=== PATIENT | male | born 1965 | race African-American/Black ===

== ENCOUNTER 2018-12-01 18:07 | Inpatient (IN) | payer OTHER ==
[2018-12-01 18:23] VITALS: TEMP 98; BMI 38.7
--- NOTE | 2018-12-01 18:25 | PDOC ---
History of Present Illness - General Chief Complaint: Chest Pain Stated Complaint: PALPITATIONS Time Seen by Provider: 12/01/18 18:16 - History of Present Illness Initial Comments: 12/01/18 18:40 Mr. 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 Patient reports palpitations started around 12 :30 today and he attempted to ignore them however became concerned when the sweating and dizziness started around 1730 today. Patient denies any other complaints at this time and was previously well before this episode. The patient denies chest pain, shortness of breath, and headache. Denies fever, chills, nausea, vomit, diarrhea and constipation. Denies dysuria, frequency, urgency and hematuria. Past History - Past Medical History Allergies/Adverse Reactions: Allergies Allergy/AdvReac Type Severity Reaction Status Date / Time No Known Allergies Allergy Verified 12/01/18 18:23 COPD: No Diabetes: Yes (type 2) HTN: Yes Hypercholesterolemia: Yes - Surgical History Abdominal Surgery: Yes (inguinal hernia/prostate) - Psycho Social/Smoking Cessation Hx Smoking History: Never smoked Have you smoked in the past 12 months: No Information on smoking cessation initiated: No Hx Alcohol Use: No Drug/Substance Use Hx: No Review of Systems - Review of Systems Comments:: 12/01/18 18:45 GENERAL/CONSTITUTIONAL: No fever or chills. No weakness. HEAD, EYES, EARS, NOSE AND THROAT: No change in vision. No ear pain or discharge. No sore throat. CARDIOVASCULAR: +Palpitations as described. No chest pain or shortness of breath RESPIRATORY: No cough, wheezing, or hemoptysis. GASTROINTESTINAL: No nausea, vomiting, diarrhea or constipation. GENITOURINARY: No dysuria, frequency, or change in urination. MUSCULOSKELETAL: No joint or muscle swelling or pain. No neck or back pain. SKIN: No rash NEUROLOGIC: +Sweating and dizziness as described. No headache, vertigo, loss of consciousness, or change in strength/sensation. ENDOCRINE: No increased thirst. No abnormal weight change HEMATOLOGIC/LYMPHATIC: No anemia, easy bleeding, or history of blood clots. ALLERGIC/IMMUNOLOGIC: No hives or skin allergy. *Physical Exam - Vital Signs Last Vital Signs Temp Pulse Resp BP Pulse Ox 98.0 F 160 H 18 106/89 100 12/01/18 18:20 12/01/18 18:20 12/01/18 18:20 12/01/18 18:20 12/01/18 18:20 - Physical Exam Comments: 12/01/18 18:45 GENERAL: Awake, alert, and fully oriented, in no acute distress HEAD: No signs of trauma, normocephalic, atraumatic EYES: PERRLA, EOMI, sclera anicteric, conjunctiva clear ENT: Auricles normal inspection, hearing grossly normal, nares patent, oropharynx clear without exudates. Moist mucosa NECK: Normal ROM, supple, no lymphadenopathy, JVD, or masses LUNGS: No distress, speaks full sentences, clear to auscultation bilaterally HEART: +Tachycardic rhythm. Normal S1 and S2, no murmurs, rubs or gallops, peripheral pulses normal and equal bilaterally. ABDOMEN: Soft, nontender, normoactive bowel sounds. No guarding, no rebound. No masses EXTREMITIES: Normal inspection, Normal range of motion, no edema. No clubbing or cyanosis. NEUROLOGICAL: Cranial nerves II through XII grossly intact. Normal speech, normal gait, no focal sensorimotor deficits SKIN: Warm, Dry, normal turgor, no rashes or lesions noted. ED Treatment Course - LABORATORY CBC & Chemistry Diagram: 12/01/18 18:45 Medical Decision Making - Medical Decision Making 12/01/18 18:46 Mr. Turner is a 53 yo male w/ pmh of SVT who presents w/ palpitations and an EKG w / SVT rhythm. Patient given adenosine 6mg for treatment with cessation of SVT and resumption of normal sinus rhythm. Patient evaluation started with cardiac labs, x-ray, and repeat EKG. Patient will be admitted for further cardiac evaluation. 12/01/18 19:02 Patient signed out to Dr. Hernandez for further evaluation. Discharge - Discharge Information Problems reviewed: Yes Clinical Impression/Diagnosis: SVT (supraventricular tachycardia) - Admission Yes - Follow up/Referral - Patient Discharge Instructions - Post Discharge Activity
[2018-12-01] MEDS ORDERED: ADENOSINE 6 MG/2 ML VIAL IVPUSH ONE ×3 (18:27→18:30)
[2018-12-01] MEDS ORDERED: SODIUM CHLORIDE 0.9% 1000 ML INFUS.BAG IV ONE (18:27)
[2018-12-01] MEDS ORDERED: METOPROLOL TARTRATE 5 MG/5 ML VIAL ONE (18:37)
[2018-12-01 18:59] LABS: BASO % 0.8 % (0-2.0); EOS % 2.3 % (0-4.5); HEMATOCRIT 34.5 % (35.4-49); HEMOGLOBIN 11.3 GM/dL (11.7-16.9); LYMPH % 29.5 % (8-40); MCH 25.5 pg (25.7-33.7); MCHC 32.8 g/dl (32.0-35.9); MEAN CELL VOLUME 77.9 fl (80-96); MEAN PLT VOLUME 8.2 fl (7.5-11.1); NEUT % 58.4 % (42.8-82.8); PLATELET COUNT 177 K/MM3 (134-434); RBC 4.43 M/mm3 (4.00-5.60)
[2018-12-01 19:36] LABS: INR 1.08 (0.83-1.09); PROTHROMBIN TIME (PATIENT) 12.7 SEC (9.7-13.0)
--- NOTE | 2018-12-01 19:40 | PDOC ---
*Physical Exam - Vital Signs Last Vital Signs Temp Pulse Resp BP Pulse Ox 98.0 F 87 20 116/82 97 12/01/18 18:20 12/01/18 18:54 12/01/18 18:54 12/01/18 18:54 12/01/18 18:54 ED Treatment Course - LABORATORY CBC & Chemistry Diagram: 12/02/18 14:45 12/02/18 11:50 - ADDITIONAL ORDERS Additional order review: Laboratory Results 12/01/18 12/01/18 12/01/18 18:50 18:45 18:45 PT with INR 12.70 INR 1.08 PTT (Actin FS) 49.5 H Creatine Kinase 273 Troponin I 0.21 H 12/01/18 18:45 RBC 4.43 MCV 77.9 L MCHC 32.8 RDW 17.0 H MPV 8.2 Neutrophils % 58.4 Lymphocytes % 29.5 Monocytes % 9.0 Eosinophils % 2.3 Basophils % 0.8 - Medications Given in the ED: ED Medications Discontinued Medications Generic Name Dose Route Start Last Admin Trade Name Sen PRN Reason Stop Dose Admin Adenosine 6 mg 12/01/18 18:28 12/01/18 18:40 Adenocard - IVPUSH 12/01/18 18:29 6 mg ONCE ONE Administration Sodium Chloride 1,000 ml 12/01/18 18:27 12/01/18 18:35 Normal Saline - IV 12/01/18 18:28 1,000 ml ONCE ONE Administration Medical Decision Making - Medical Decision Making 12/01/18 19:39 Pt signed out to me by Dr. Dunlap. 53M presents in SVT s/p chemical cardioversion, now in sinus rhythm. Microblogged for admission. 12/01/18 20:[address] Harmon for admission. Trop 0.21. Asa 162 ordered. 12/01/18 22:07 Repeat trop at 0.58. Dr. Harmon paged to inform of results. Dr. Jackson, cards [employer] truck driver, paged. 12/01/18 22:22 Case d/w Dr. Serrano who does not believe the patient is having an NSTEMI. Pt is resting comfortably. He recommends high dose statin and an increased dose of 50mg BID of lopressor. Discharge - Discharge Information Problems reviewed: Yes Clinical Impression/Diagnosis: SVT (supraventricular tachycardia) Disposition: AGAINST MEDICAL ADVICE - Admission No - Follow up/Referral - Patient Discharge Instructions - Post Discharge Activity
[2018-12-01] MEDS ORDERED: ASPIRIN COATED 81 MG TABLET.EC PO ONE (20:25)
[2018-12-01 20:47] LABS: N-TERMINAL BNP 368.2 pg/ml (5-125)
[2018-12-01 21:19] LABS: ALBUMIN 3.5 g/dl (3.4-5.0); BILIRUBIN,TOTAL 0.2 mg/dL (0.2-1); BLOOD UREA NITROGEN 20.6 mg/dL (7-18); CALCIUM 9.2 mg/dL (8.5-10.1); CREATININE 1.2 mg/dL (0.55-1.3); MAGNESIUM 1.8 mg/dL (1.8-2.4); PHOSPHOROUS 3.8 mg/dL (2.5-4.9); POTASSIUM 3.9 mmol/L (3.5-5.1)
[2018-12-01] MEDS ORDERED: ASPIRIN COATED 81 MG TABLET.EC ONE (21:32)
--- NOTE | 2018-12-01 22:05 | HP ---
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 Patient reports palpitations started around 12:30 today and he attempted to ignore them however became concerned when the sweating and dizziness started around 1730 today. Patient denies any other complaints at this time and was previously well before this episode. - Smoking History Smoking history: Never smoked Have you smoked in the past 12 months: No - Alcohol/Substance Use Hx Alcohol Use: No Home Medications - Allergies Allergies/Adverse Reactions: Allergies Allergy/AdvReac Type Severity Reaction Status Date / Time No Known Allergies Allergy Verified 12/01/18 18:23 - Home Medications Home Medications: Ambulatory Orders Atorvastatin Ca [Lipitor] 40 mg PO HS 12/01/18 Dabigatran Etexilate Mesylate [Pradaxa -] 150 mg PO BID 12/01/18 Docusate Sodium [Colace] 100 mg PO DAILY 12/01/18 Ferrous Sulfate [Iron] 325 mg PO DAILY 12/01/18 Gabapentin [Neurontin -] 300 mg PO Q12H 12/01/18 Hydrochlorothiazide [Hctz -] 12.5 mg PO DAILY 12/01/18 L.acidoph,Paracasei, B.lactis [Probiotic] 1 each PO DAILY 12/01/18 Metformin HCl [Glucophage] 1,000 mg PO BID 12/01/18 Metoprolol Tartrate [Lopressor -] 25 mg PO BID 12/01/18 Physical Examination Vital Signs: Vital Signs Temperature 98.0 F 12/01/18 18:20 Pulse Rate 87 12/01/18 18:54 Respiratory Rate 20 12/01/18 18:54 Blood Pressure 116/82 12/01/18 18:54 O2 Sat by Pulse Oximetry (%) 97 12/01/18 18:54 Constitutional: Yes: No Distress HENT: Yes: Atraumatic Neck: Yes: Supple Cardiovascular: Yes: Regular Rate and Rhythm Respiratory: Yes: CTA Bilaterally Gastrointestinal: Yes: Normal Bowel Sounds Extremities: Yes: WNL Neurological: Yes: Alert, Oriented Labs: CBC, BMP 12/01/18 18:45 12/01/18 22:00 Problem List - Problems (1) SVT (supraventricular tachycardia) Assessment/Plan: on meds monitor cardiology consult fu troponins Code(s): I47.1 - SUPRAVENTRICULAR TACHYCARDIA (2) Diabetes mellitus Assessment/Plan: on po meds bgms Code(s): E11.9 - TYPE 2 DIABETES MELLITUS WITHOUT COMPLICATIONS (3) HTN (hypertension) Assessment/Plan: on meds Code(s): I10 - ESSENTIAL (PRIMARY) HYPERTENSION Qualifiers: Hypertension type: essential hypertension Qualified Code(s): I10 - Essential (primary) hypertension (4) Hypercholesterolemia Assessment/Plan: on meds Code(s): E78.00 - PURE HYPERCHOLESTEROLEMIA, UNSPECIFIED (5) JUAN (obstructive sleep apnea) Code(s): G47.33 - OBSTRUCTIVE SLEEP APNEA (ADULT) (PEDIATRIC) (6) PSVT (paroxysmal supraventricular tachycardia) Code(s): I47.1 - SUPRAVENTRICULAR TACHYCARDIA Assessment/Plan Laboratory Tests 12/01/18 12/01/18 12/01/18 18:45 18:45 18:45 WBC 6.0 RBC 4.43 Hgb 11.3 L Hct 34.5 L MCV 77.9 L MCH 25.5 L MCHC 32.8 RDW 17.0 H Plt Count 177 MPV 8.2 Absolute Neuts (auto) 3.5 Neutrophils % 58.4 Lymphocytes % 29.5 Monocytes % 9.0 Eosinophils % 2.3 Basophils % 0.8 Nucleated RBC % 2 H PT with INR INR PTT (Actin FS) 49.5 H Sodium Potassium Chloride Carbon Dioxide Anion Gap BUN Creatinine Est GFR (CKD-EPI)AfAm Est GFR (CKD-EPI)NonAf Random Glucose Calcium Phosphorus Magnesium Total Bilirubin AST ALT Alkaline Phosphatase Creatine Kinase 273 Creatine Kinase Index 0.9 CK-MB (CK-2) 2.5 Troponin I 0.21 H B-Natriuretic Peptide Total Protein Albumin TSH 12/01/18 12/01/18 12/01/18 18:50 19:58 22:00 WBC RBC Hgb Hct MCV MCH MCHC RDW Plt Count MPV Absolute Neuts (auto) Neutrophils % Lymphocytes % Monocytes % Eosinophils % Basophils % Nucleated RBC % PT with INR 12.70 INR 1.08 PTT (Actin FS) Sodium 141 Potassium 3.9 Chloride 105 Carbon Dioxide 28 Anion Gap 8 BUN 20.6 H Creatinine 1.2 Est GFR (CKD-EPI)AfAm 78.43 Est GFR (CKD-EPI)NonAf 67.67 Random Glucose 226 H Calcium 9.2 Phosphorus 3.8 Magnesium 1.8 Total Bilirubin 0.2 AST 37 ALT 75 H Alkaline Phosphatase 100 Creatine Kinase 286 Creatine Kinase Index CK-MB (CK-2) Troponin I 0.58 H B-Natriuretic Peptide 368.2 H Total Protein 7.0 Albumin 3.5 TSH 0.87
[2018-12-01 22:06] VITALS: BP 109/85; PULSE 81
[2018-12-01] MEDS ORDERED: GABAPENTIN 100 MG CAPSULE (FP) ONE (22:41)
[2018-12-01] MEDS: GABAPENTIN 300 MG CAPSULE (FP) PO SCH (22:44)
[2018-12-02] MEDS ORDERED: metFORMIN HCL 500 MG TABLET (FP) PO SCH (07:00)
--- NOTE | 2018-12-02 09:34 | EKG ---
Test Reason : Blood Pressure : / mmHG Vent. Rate : 072 BPM Atrial Rate : 072 BPM P-R Int : 184 ms QRS Dur : 112 ms QT Int : 388 ms P-R-T Axes : 053 -29 047 degrees QTc Int : 424 ms NORMAL SINUS RHYTHM NONSPECIFIC T WAVE ABNORMALITY ABNORMAL ECG WHEN COMPARED WITH ECG OF 01-DEC-2018 18:38, PREMATURE VENTRICULAR COMPLEXES ARE NO LONGER PRESENT Confirmed by CARLEY HASKINS MD ([id number]) on 12/02/2018 9:33:38 AM Referred By: Confirmed By:CARLEY HASKINS MD
[2018-12-02] MEDS: GABAPENTIN 300 MG CAPSULE (FP) PO SCH (09:46)
[2018-12-02] MEDS ORDERED: METOPROLOL TARTRATE 25 MG TABLET (FP) PO SCH (10:00)
[2018-12-02] MEDS ORDERED: DABIGATRAN ETEXILATE MESYLATE 150 MG CAPSULE PO SCH (10:00)
--- NOTE | 2018-12-02 10:04 | EKG ---
Test Reason : Blood Pressure : / mmHG Vent. Rate : 089 BPM Atrial Rate : 089 BPM P-R Int : 174 ms QRS Dur : 098 ms QT Int : 352 ms P-R-T Axes : 046 -10 038 degrees QTc Int : 428 ms SINUS RHYTHM WITH OCCASIONAL PREMATURE VENTRICULAR COMPLEXES NONSPECIFIC T WAVE ABNORMALITY ABNORMAL ECG Confirmed by Benny Davey MD ([id number]) on 12/02/2018 10:04:45 AM Referred By: Confirmed By:Benny Davey MD
--- NOTE | 2018-12-02 11:13 | EKG ---
Test Reason : Blood Pressure : / mmHG Vent. Rate : 158 BPM Atrial Rate : 144 BPM P-R Int : 000 ms QRS Dur : 100 ms QT Int : 300 ms P-R-T Axes : 000 053 003 degrees QTc Int : 486 ms SUPRAVENTRICULAR TACHYCARDIA INFERIOR INFARCT , AGE UNDETERMINED ABNORMAL ECG NO PREVIOUS ECGS AVAILABLE Confirmed by MD ALEX, ROCCO ([id number]) on 12/02/2018 11:13:06 AM Referred By: Confirmed By:ROCCO JOHNSON MD
--- NOTE | 2018-12-02 11:53 | CON.CARD ---
Consult Consult Specialty:: Cardiology Referred by:: Dr. Harmon Reason for Consultation:: Cardiac evaluation - History of Present Illness Chief Complaint: SVT History of Present Illness: Patient is a 53 year old male with underlying history of type 2 DM, JUAN, HTN and hypercholesterolemia who presents with palpitations and ECG revealing SVT. He started to have rapid HR yesterday afternoon and finally when he presented to ED, he was found with SVT. He was given Adenosine 6 mg which broke his rhythm back to normal sinus rhythm. He remains in sinus rhythm. He denies chest pain, shortness of breath or palpitations. He denies paroxysmal nocturnal dyspnea or orthopnea. He denies fever or chills. He denies nausea, vomiting, diarrhea or abdominal pain. He denies headache or lightheadedness. He states that this is third time of rapid HR. He states that each time he was given IV medicine which slowed his HR. He also states that he was started on Pradaxa on the notion of AF in the past. His doctors are at [facility]. He has also been to [facility] in [place]. - History Source History Provided By: Patient, Medical Record Limitations to Obtaining History: No Limitations - Past Medical History Cardio/Vascular: Yes: AFIB (As per patient for reasons of taking Pradaxa), HTN, Hyperlipdemia, Other (SVT) Endocrine: Yes: Diabetes Mellitus - Past Surgical History Past Surgical History: Yes: Hernia Repair - Alcohol/Substance Use Hx Alcohol Use: No History of Substance Use: reports: None - Smoking History Smoking history: Never smoked Have you smoked in the past 12 months: No Home Medications - Allergies Allergies/Adverse Reactions: Allergies Allergy/AdvReac Type Severity Reaction Status Date / Time No Known Allergies Allergy Verified 12/01/18 18:23 - Home Medications Home Medications: Ambulatory Orders Atorvastatin Ca [Lipitor] 40 mg PO HS 12/01/18 Dabigatran Etexilate Mesylate [Pradaxa -] 150 mg PO BID 12/01/18 Docusate Sodium [Colace] 100 mg PO DAILY 12/01/18 Ferrous Sulfate [Iron] 325 mg PO DAILY 12/01/18 Gabapentin [Neurontin -] 300 mg PO Q12H 12/01/18 Hydrochlorothiazide [Hctz -] 12.5 mg PO DAILY 12/01/18 L.acidoph,Paracasei, B.lactis [Probiotic] 1 each PO DAILY 12/01/18 Metformin HCl [Glucophage] 1,000 mg PO BID 12/01/18 Metoprolol Tartrate [Lopressor -] 25 mg PO BID 12/01/18 Family Medical History Family Hx Cardiac Disorders: Mother, Father Family Hx Diabetes: Mother, Father Review of Systems - Review of Systems Constitutional: denies: Chills, Fever Cardiovascular: reports: Palpitations. denies: Chest Pain, Shortness of Breath Respiratory: denies: Cough, Hemoptysis, Orthopnea, PND, SOB, SOB on Exertion Gastrointestinal: denies: Abdominal Pain, Constipation, Diarrhea, Melena, Nausea , Rectal Bleeding, Vomiting Musculoskeletal: denies: Back Pain, Joint Pain Neurological: denies: Dizziness, Headache, Seizure, Syncope Vital Signs: Vital Signs Temperature 98.0 F 12/01/18 18:20 Pulse Rate 81 12/01/18 20:00 Respiratory Rate 20 12/01/18 20:00 Blood Pressure 109/85 12/01/18 20:00 O2 Sat by Pulse Oximetry (%) 98 12/01/18 20:00 Eyes: Yes: PERRL HENT: Yes: Atraumatic Neck: Yes: Supple Respiratory: Yes: CTA Bilaterally Gastrointestinal: Yes: Normal Bowel Sounds, Soft. No: Tenderness Cardiovascular: Yes: Regular Rate and Rhythm JVD: No PMI: Non-Displaced Heart Sounds: Yes: S1, S2. No: Gallop Murmur: No: Systolic Murmur, Diastolic Murmur Edema: No - Other Data Labs, Other Data: CBC, BMP 12/01/18 18:45 12/01/18 22:00 INR, PTT INR 1.08 (0.83-1.09) 12/01/18 18:50 Troponin, BNP 12/01/18 12/01/18 12/01/18 18:45 19:58 22:00 Troponin I 0.21 H 0.58 H B-Natriuretic Peptide 368.2 H Laboratory Results - last 24 hr 12/01/18 12/01/18 12/01/18 18:45 18:45 18:45 WBC 6.0 RBC 4.43 Hgb 11.3 L Hct 34.5 L MCV 77.9 L MCH 25.5 L MCHC 32.8 RDW 17.0 H Plt Count 177 MPV 8.2 Absolute Neuts (auto) 3.5 Neutrophils % 58.4 Lymphocytes % 29.5 Monocytes % 9.0 Eosinophils % 2.3 Basophils % 0.8 Nucleated RBC % 2 H PT with INR INR PTT (Actin FS) 49.5 H Sodium Potassium Chloride Carbon Dioxide Anion Gap BUN Creatinine Est GFR (CKD-EPI)AfAm Est GFR (CKD-EPI)NonAf Random Glucose Calcium Phosphorus Magnesium Total Bilirubin AST ALT Alkaline Phosphatase Creatine Kinase 273 Creatine Kinase Index 0.9 CK-MB (CK-2) 2.5 Troponin I 0.21 H B-Natriuretic Peptide Total Protein Albumin TSH 12/01/18 12/01/18 12/01/18 18:50 19:58 22:00 WBC RBC Hgb Hct MCV MCH MCHC RDW Plt Count MPV Absolute Neuts (auto) Neutrophils % Lymphocytes % Monocytes % Eosinophils % Basophils % Nucleated RBC % PT with INR 12.70 INR 1.08 PTT (Actin FS) Sodium 141 Potassium 3.9 Chloride 105 Carbon Dioxide 28 Anion Gap 8 BUN 20.6 H Creatinine 1.2 Est GFR (CKD-EPI)AfAm 78.43 Est GFR (CKD-EPI)NonAf 67.67 Random Glucose 226 H Calcium 9.2 Phosphorus 3.8 Magnesium 1.8 Total Bilirubin 0.2 AST 37 ALT 75 H Alkaline Phosphatase 100 Creatine Kinase 286 Creatine Kinase Index 1.3 CK-MB (CK-2) 3.9 H Troponin I 0.58 H B-Natriuretic Peptide 368.2 H Total Protein 7.0 Albumin 3.5 TSH 0.87 Sinus rhythm with nonspecific T abnormality Echo: Pending Imaging - Results Chest X-ray: Report Reviewed (Unremarkable) EKG: Report Reviewed Problem List - Problems (1) HTN (hypertension) Code(s): I10 - ESSENTIAL (PRIMARY) HYPERTENSION Qualifiers: Hypertension type: essential hypertension Qualified Code(s): I10 - Essential (primary) hypertension (2) Hypercholesterolemia Code(s): E78.00 - PURE HYPERCHOLESTEROLEMIA, UNSPECIFIED (3) JUAN (obstructive sleep apnea) Code(s): G47.33 - OBSTRUCTIVE SLEEP APNEA (ADULT) (PEDIATRIC) (4) PSVT (paroxysmal supraventricular tachycardia) Code(s): I47.1 - SUPRAVENTRICULAR TACHYCARDIA (5) SVT (supraventricular tachycardia) Code(s): I47.1 - SUPRAVENTRICULAR TACHYCARDIA (6) Diabetes mellitus Code(s): E11.9 - TYPE 2 DIABETES MELLITUS WITHOUT COMPLICATIONS Assessment/Plan 1. 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 Unclear as to PAF but currently on DOAC 3. Type 2 DM 4. HTN 5. Hypercholesterolemia 6. JUAN on BIPAP 7. Elevated troponin suggest demand ischemia possible underlying CAD needs to be ruled out PLAN: 1. Continue Metoprolol and uptitrate as tolerated 2. Continue Pradaxa for now but will need to clarify history of PAF from [facility] and decide further whether to continue this 3. Echocardiography to assess LV/RV and valvular function 4. Trend troponin 5. Further cardiac work up including nuclear stress testing can be done as outpatient 6. Discussed possible benefit of EP study/RFA for above SVT. This can be discussed further as outpatient Judd Jackson MD
[2018-12-02 12:33] LABS: BLOOD UREA NITROGEN 14.6 mg/dL (7-18)
--- NOTE | 2018-12-02 13:12 | ECHO ---
Version: 1 Name: JUNG DANIEL Exam: Adult Echocardiogram Study Date: 12/02/2018, 12:23 PM Age: 53 Years MMode/2D Measurements & Calculations IVSd: 0.87 cm LVIDs: 3.3 cm LVIDd: 5.9 cm LVPWd: 1.04 cm LAV (MOD-bp): 49.2 ml LVOT diam: 1.99 cm Ao root diam: 3.1 cm LA dimension: 3.4 cm Doppler Measurements & Calculations MV E max leonides: 76.6 cm/sec Med E/e': 6.7 MV A max leonides: 57.2 cm/sec Med Peak E' Leonides: 11.4 cm/sec MV E/A: 1.34 Lat E/e': 6.1 Lat Peak E' Leonides: 12.5 cm/sec Ao max P.1 mmHg Ao V2 max: 123.5 cm/sec TR max leonides: 203.2 cm/sec TR max P.9 mmHg Procedure The study was technically limited with all images being suboptimal in quality. Left Ventricle The left ventricular size, thickness and function are normal. Ejection Fraction = 55%. The transmitr al spectral Doppler flow pattern is suggestive of impaired LV relaxation. Right Ventricle The right ventricle is normal in size and function. Atria Normal left and right atrial size and function. Mitral Valve The mitral valve is grossly normal. There is trace mitral regurgitation. Tricuspid Valve The tricuspid valve is not well visualized, but is grossly normal. There is mild tricuspid regurgita tion. Aortic Valve The aortic valve is normal in structure and function. Pulmonic Valve The pulmonic valve is not well visualized. Great Vessels The aortic root is normal size. Normal aortic arch, descending and ascending aorta. Pericardium/Pleura There is no pericardial effusion. Summary Statements The study was technically limited with all images being suboptimal in quality. The left ventricular size, thickness and function are normal Ejection Fraction = 55%. The transmitral spectral Doppler flow pattern is suggestive of impaired LV relaxation. The right ventricle is normal in size and function. Normal left and right atrial size and function. The mitral valve is grossly normal. There is trace mitral regurgitation. The tricuspid valve is not well visualized, but is grossly normal. There is mild tricuspid regurgitation. The aortic valve is normal in structure and function. The pulmonic valve is not well visualized. The aortic root is normal size. Normal aortic arch, descending and ascending aorta There is no pericardial effusion. Ab Robledo 12/02/2018, 12:11 PM Ordering Physician: Judd Jackson Performed By: Makenna Bermudez
[2018-12-02 15:20] LABS: BASO % 0.6 % (0-2.0); EOS % 3.5 % (0-4.5); HEMATOCRIT 34.6 % (35.4-49); LYMPH % 33.8 % (8-40); MCH 25.5 pg (25.7-33.7); MEAN CELL VOLUME 79.7 fl (80-96); MEAN PLT VOLUME 8.5 fl (7.5-11.1); MONO % 8.6 % (3.8-10.2); NEUT % 53.5 % (42.8-82.8); PLATELET COUNT 176 K/MM3 (134-434); RBC 4.33 M/mm3 (4.00-5.60); RDW 16.8 % (11.9-15.9); WHITE BLOOD COUNT 4.7 K/mm3 (4.0-10.0)
--- NOTE | 2018-12-02 19:51 | DS ---
Physical Examination Vital Signs: Vital Signs Temperature 98.0 F 12/01/18 18:20 Pulse Rate 81 12/01/18 20:00 Respiratory Rate 20 12/01/18 20:00 Blood Pressure 109/85 12/01/18 20:00 O2 Sat by Pulse Oximetry (%) 98 12/01/18 20:00 Labs: CBC, BMP 12/02/18 14:45 12/02/18 11:50 Discharge Summary Reason For Visit: SUPRAVENTRICULAR TACHYCARDIA - Instructions Disposition: AGAINST MEDICAL ADVICE - Home Medications Comprehensive Discharge Medication List: Ambulatory Orders Atorvastatin Ca [Lipitor] 40 mg PO HS 12/01/18 Dabigatran Etexilate Mesylate [Pradaxa -] 150 mg PO BID 12/01/18 Docusate Sodium [Colace] 100 mg PO DAILY 12/01/18 Ferrous Sulfate [Iron] 325 mg PO DAILY 12/01/18 Gabapentin [Neurontin -] 300 mg PO Q12H 12/01/18 Hydrochlorothiazide [Hctz -] 12.5 mg PO DAILY 12/01/18 L.acidoph,Paracasei, B.lactis [Probiotic] 1 each PO DAILY 12/01/18 Metformin HCl [Glucophage] 1,000 mg PO BID 12/01/18 Metoprolol Tartrate [Lopressor -] 25 mg PO BID 12/01/18 AMA
[2018-12-02] MEDS ORDERED: ATORVASTATIN CA 40 MG TABLET (FP) PO SCH (22:00)
== END 2018-12-02 18:38 | disposition left against medical advice (07) | DRG 310 ==
LOC: JER 18:07 → JERBED 18:47 → OBSVTOIN 22:10
PROVIDERS: ADMIT Internal Medicine; ATTEND Internal Medicine
DX: I47.1 Supraventricular tachycardia (principal); R07.9 Chest pain, unspecified; G47.33 Obstructive sleep apnea (adult) (pediatric); I10 Essential (primary) hypertension; E78.5 Hyperlipidemia, unspecified; E11.9 Type 2 diabetes mellitus without complications; Z79.84 Long term (current) use of oral hypoglycemic drugs; E78.00 Pure hypercholesterolemia, unspecified
CPT/HCPCS: 36415; 71045-TC-FY; 80048; 80053; 82550; 82553; 83735; 83880; 84100; 84443; 84484; 85025; 85610; 85730; 93005; 93010; 93306-TC; 99284-25; G0378; J7030

== ENCOUNTER 2019-01-08 06:26 | Observation (INO) | payer OTHER ==
[2019-01-08 06:50] VITALS: TEMP 97.3; BMI 39.9
--- NOTE | 2019-01-08 07:30 | PDOC ---
Attending Attestation - Resident Resident Name: Dilan Ly - ED Attending Attestation I have performed the following: I have examined & evaluated the patient, The case was reviewed & discussed with the resident, I agree w/resident's findings & plan, Exceptions are as noted - HPI HPI: 01/08/19 07:31 Mr. Turner is a 53 year old male with a past medical history of type non insulin dependent DM, JUAN, HTN, HLD, recent admission for SVT. 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 He got out of the car and immediately noticed that he felt lightheaded. He also noted sweating and felt that his head felt cold. He denied chest pain or palpitations (please note, when patient was admitted to the hospital for SVT he had palpitations) He denies fevers or chills. He denies nausea vomiting diarrhea. He denies headache or abdominal pain. Currently he feels better but still feels lightheaded. 01/08/19 07:55 - Physicial Exam PE: 01/08/19 07:30 GENERAL: The patient is in no acute distress, ambulatory with a steady gait to the bathroom. HEENT: EOMI, PERRLA, no nystagmus, Ears normal, nares patent, oropharynx clear without exudates. Moist mucous membranes. NECK: Normal range of motion, supple LUNGS: Breath sounds equal, clear to auscultation bilaterally. No wheezes, and no crackles. HEART:Regular rate and rhythm, normal S1 and S2 without murmur, rub or gallop. ABDOMEN: Soft, nontender, normoactive bowel sounds. EXTREMITIES: Normal range of motion, no edema. NEUROLOGICAL: Cranial nerves II through XII grossly intact. Normal speech. No focal neurological deficits. SKIN: Warm, Dry, normal turgor, no rashes or lesions noted. 01/08/19 07:43 - Medical Decision Making 01/08/19 07:45 53 yo M presenting with a complaint of lightheadedness DD: BPPV, dehydration/orthostasis, ACS, hypoglycemia, central vertigo will do: Labs EKG CXR CT Re Assess EKG: Sinus rhythm rate of 57 bpm, axis normal, intervals are normal, no ST elevation or depression, T wave flattening, (+) PVC 01/08/19 08:41 CXR: nml 01/08/19 08:43 Laboratory Tests 01/08/19 07:51 WBC 4.2 Hgb 11.2 L Hct 33.9 L Plt Count 172 01/08/19 09:51 Laboratory Tests 01/08/19 07:51 Creatine Kinase 188 Creatine Kinase Index 0.5 CK-MB (CK-2) 1.0 Troponin I < 0.02 01/08/19 10:11 CT head: Minimal volume loss, nonspecific. Ventricles and basal cisterns appear unremarkable. No mass, gross acute infarct or intracranial hemorrhage identified. No shift of the midline structures. Sinuses well aerated Hyperdense left orbit with calcifications and suggestion of postop changes for which ophthalmology consult is suggested Pt placed on observation Pt would like to be leave against medical advice Pt advised against leaving AMA Note: The patient insists on leaving the emergency dept and is signing out against medical advice. The patient understands the risks and complications that may result from the refusal of medical care and admission which includes and permanent disability. The patient has the mental capacity of understanding the risks of refusing care and is capable of making an informed decision. The patient was instructed to return to the emergency department should he change his mind regarding medical care or should his condition worsen. The patient signed the Against Medical Advice form. Heart Score/ECG Review - History History: Slightly suspicious - Electrocardiogram EKG: Normal - Age Age: 45-65 - Risk Factors Risk Factors Heart Score: Yes Hx Hypercholesterolemia, Yes Hx Hypertension, Yes Hx Diabetes Based on the list above the patient has:: >/=3 risk factors or Hx atherosclerotic disease - Troponin Troponin: </= normal limit - Score Heart Score - Total: 3
[2019-01-08] MEDS ORDERED: MECLIZINE HCL 25 MG TABLET (FP) PO ONE (07:33)
--- NOTE | 2019-01-08 07:33 | PDOC ---
History of Present Illness - General Chief Complaint: Lightheaded Stated Complaint: FEELS FAINT Time Seen by Provider: 01/08/19 07:04 - History of Present Illness Initial Comments: 01/08/19 07:35 Pt is a 53 y/o M with a significant PMH of IDDMII, JUAN, HTN, HLD, Prostate Cancer (s/p radical prostatectomy) and prior SVT episodes who presents to our Emergency Department due to lightheadedness. 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 Endorses he takes Insulin every day however did not take it this morning. [facility]. Denies chest pain, shortness of breath, loss of consciousness, or vomiting. Endorses nausea. PMH as above Past SurgHx- Radical prostatectomy, Penile implant, Umbilical Hernia repair, Left eye Surgery (unclear exact type of surgery) FH- Extensive history of DM and HTN in mother and father Seasonal allergies Past History - Past Medical History Allergies/Adverse Reactions: Allergies Allergy/AdvReac Type Severity Reaction Status Date / Time No Known Allergies Allergy Verified 01/08/19 06:50 Home Medications: Ambulatory Orders Atorvastatin Ca [Lipitor] 40 mg PO HS 12/01/18 Dabigatran Etexilate Mesylate [Pradaxa -] 150 mg PO BID 12/01/18 Docusate Sodium [Colace] 100 mg PO DAILY 12/01/18 Ferrous Sulfate [Iron] 325 mg PO DAILY 12/01/18 Gabapentin [Neurontin -] 300 mg PO Q12H 12/01/18 Hydrochlorothiazide [Hctz -] 12.5 mg PO DAILY 12/01/18 L.acidoph,Paracasei, B.lactis [Probiotic] 1 each PO DAILY 12/01/18 Metformin HCl [Glucophage] 1,000 mg PO BID 12/01/18 Metoprolol Tartrate [Lopressor -] 25 mg PO BID 12/01/18 Atorvastatin Ca [Lipitor] 40 mg PO HS tablet 01/08/19 COPD: No Diabetes: Yes (type 2) HTN: Yes Hypercholesterolemia: Yes - Surgical History Abdominal Surgery: Yes (inguinal hernia/prostate) - Psycho Social/Smoking Cessation Hx Smoking History: Never smoked Have you smoked in the past 12 months: No Hx Alcohol Use: No Drug/Substance Use Hx: No Review of Systems - Review of Systems Constitutional: Yes: Weakness HEENTM: Yes: Blurred Vision. No: Double Vision Respiratory: No: Cough, Orthopnea, Shortness of Breath, SOB with Exertion, SOB at Rest, Hemoptysis Cardiac (ROS): No: Chest Pain, Irregular Heart Rate ABD/GI: No: Abdominal Distended, Abd. Pain w/ defecation, Constipated, Diarrhea : No: Dysuria Neurological: Yes: Weakness, Dizziness *Physical Exam - Vital Signs Last Vital Signs Temp Pulse Resp BP Pulse Ox 97.3 F L 55 L 18 121/61 97 01/08/19 06:41 01/08/19 06:41 01/08/19 06:41 01/08/19 06:41 01/08/19 06:41 - Physical Exam General Appearance: Yes: Nourished, Appropriately Dressed HEENT: positive: EOMI, KALINA, Normal ENT Inspection Respiratory/Chest: positive: Lungs Clear, Normal Breath Sounds Cardiovascular: positive: Regular Rhythm, S1, S2 Heart Score/ECG Review - History History: Slightly suspicious - Electrocardiogram EKG: Non specific repolarization disturbance - Age Age: 45-65 - Risk Factors Risk Factors Heart Score: Yes Hx Hypercholesterolemia, Yes Hx Hypertension, Yes Hx Diabetes, Yes Positive family hx of cardiac disease, Yes Hx Obesity Based on the list above the patient has:: >/=3 risk factors or Hx atherosclerotic disease - Troponin Troponin: </= normal limit - Score Heart Score - Total: 4 - ECG Intrepretation Rhythm: Regular Rhythm - Woodman Woodman: Normal - ECG Impressions Comment:: 01/08/19 08:20 Sinus Hollis [address] and T wave abnormality. QTc 402. 01/08/19 08:21 ED Treatment Course - LABORATORY CBC & Chemistry Diagram: 01/08/19 07:51 01/08/19 07:51 - ADDITIONAL ORDERS Additional order review: Laboratory Results 01/08/19 06:37 POC Glucometer 150 01/08/19 06:37 POC Glucometer 150 - RADIOLOGY Radiology Studies Ordered: Category Date Time Status HEAD CT WITHOUT CONTRAST [CT] Stat CT Scan 01/08/19 07:32 Ordered Medical Decision Making - Medical Decision Making 01/08/19 07:34 DDx includes but not limited to Stroke, M.I, Vertebral artery dissection, Hypoglycemia, and Vertigo. Low clinical suspicion for VAD or Stroke however given multiple comorbidites, will order Head CT w/o Contrast. Will order CBC w/ diff, CMP, CXR, Cardiac Profile, BNP 01/08/19 10:34 Trop negative, repeat at 11 am. B[address]NL. Head CT no acute intracranial pathology. Hyperdense left orbit w/ suggestion of post-op change. Ophtho consult recommended. 01/08/19 10:36 Will Tele Obs patient as Heart score 4 and pt has multiple comorbidities including DM, HTN, HLD, and obesity. 01/08/19 11:07 am Pt admitted to Hospitalist Service. Discharge - Discharge Information Problems reviewed: Yes Clinical Impression/Diagnosis: Lightheaded Condition: Fair Disposition: AGAINST MEDICAL ADVICE - Follow up/Referral - Patient Discharge Instructions - Post Discharge Activity
--- NOTE | 2019-01-08 07:49 | PDOC ---
NIH Stroke Scale - Initial Evaluation Level of consciousness: Alert Ask patient the month and their age: Answers both correctly Ask patient to open & close eyes; make fist and let go: Obeys both correctly Best gaze (horizontal eye movement): Normal Visual field testing: No visual field loss (Endorses blurry vision) Facial paresis (Show teeth/raise eyebrows/close eyes tight): Normal symmetrical movement Motor Function: Left Arm: Normal Motor Function: Right Arm: Normal (extends arm 90 (or 45) degrees for 10 seconds without drift Motor Function: Left Leg: Normal (extends leg 30 degrees for 5 seconds without drift) Motor Function: Right Leg: Normal (extends leg 30 degrees for 5 seconds without drift) Limb Ataxia: No ataxia Sensory(Use pinprick test arms,legs,trunk,face/side to side): Normal Best language (Describe picture, name items, read sentences): No Aphasia Dysarthria (read several words): Normal articulation Extinction and Inattention: No abnormality - Total Score NIH Stroke Scale Score: 0
[2019-01-08] MEDS ORDERED: MECLIZINE HCL 25 MG TABLET (FP) ONE (08:03)
[2019-01-08 08:10] LABS: BASO % 0.5 % (0-2.0); HEMATOCRIT 33.9 % (35.4-49); HEMOGLOBIN 11.2 GM/dL (11.7-16.9); LYMPH % 28.5 % (8-40); MCH 26.1 pg (25.7-33.7); MEAN PLT VOLUME 8.1 fl (7.5-11.1); MONO % 7.8 % (3.8-10.2); NEUT % 59.2 % (42.8-82.8); PLATELET COUNT 172 K/MM3 (134-434); RBC 4.29 M/mm3 (4.00-5.60); RDW 16.7 % (11.9-15.9); WHITE BLOOD COUNT 4.2 K/mm3 (4.0-10.0)
[2019-01-08 08:45] LABS: ALBUMIN 3.5 g/dl (3.4-5.0); ALK PHOS 90 U/L (45-117); ANION GAP 5 MMOL/L (8-16); BILIRUBIN,TOTAL 0.2 mg/dL (0.2-1); BLOOD UREA NITROGEN 15.4 mg/dL (7-18); CALCIUM 9.2 mg/dL (8.5-10.1); CHLORIDE 104 mmol/L (98-107); CO2 30 mmol/L (21-32); CREATININE 0.9 mg/dL (0.55-1.3); GLUCOSE,RANDOM 160 mg/dL (74-106); N-TERMINAL BNP 42.1 pg/ml (5-125); POTASSIUM 3.8 mmol/L (3.5-5.1); SGOT/AST 22 U/L (15-37); SGPT/ALT 40 U/L (13-61); SODIUM 139 mmol/L (136-145)
[2019-01-08 09:04] VITALS: BP 121/68; PULSE 52
--- NOTE | 2019-01-08 11:01 | HP ---
Admitting History and Physical - Admission History of Present Illness: Pt is a 53 y/o M with a significant PMH of IDDMII, JUAN, HTN, HLD, Prostate Cancer (s/p radical prostatectomy) and prior SVT episodes who presents to our Emergency Department due to lightheadedness. 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 Endorses he takes Insulin every day however did not take it this morning. [facility] C[facility]. Denies chest pain, shortness of breath, loss of consciousness, or vomiting. Endorses nausea. PMH as above Past SurgHx- Radical prostatectomy, Penile implant, Umbilical Hernia repair, Left eye Surgery (unclear exact type of surgery) FH- Extensive history of DM and HTN in mother and father Seasonal allergies History Source: Patient Limitations to Obtaining History: Other (Pt requesting to aign out AMA. Advised patient of risk including MO, SStroke, and or . Verbalized understaing.) - Past Medical History Cardiovascular: Yes: AFIB (As per patient for reasons of taking Pradaxa), HTN, Hyperlipdemia, Other (SVT) Endocrine: Yes: Diabetes Mellitus - Past Surgical History Past Surgical History: Yes: Hernia Repair - Smoking History Smoking history: Never smoked Have you smoked in the past 12 months: No - Alcohol/Substance Use Hx Alcohol Use: No History of Substance Use: reports: None Home Medications - Allergies Allergies/Adverse Reactions: Allergies Allergy/AdvReac Type Severity Reaction Status Date / Time No Known Allergies Allergy Verified 01/08/19 06:50 - Home Medications Home Medications: Ambulatory Orders Atorvastatin Ca [Lipitor] 40 mg PO HS 12/01/18 Dabigatran Etexilate Mesylate [Pradaxa -] 150 mg PO BID 12/01/18 Docusate Sodium [Colace] 100 mg PO DAILY 12/01/18 Ferrous Sulfate [Iron] 325 mg PO DAILY 12/01/18 Gabapentin [Neurontin -] 300 mg PO Q12H 12/01/18 Hydrochlorothiazide [Hctz -] 12.5 mg PO DAILY 12/01/18 L.acidoph,Paracasei, B.lactis [Probiotic] 1 each PO DAILY 12/01/18 Metformin HCl [Glucophage] 1,000 mg PO BID 12/01/18 Metoprolol Tartrate [Lopressor -] 25 mg PO BID 12/01/18 Atorvastatin Ca [Lipitor] 40 mg PO HS tablet 01/08/19 Physical Examination Vital Signs: Vital Signs Temperature 97.3 F L 01/08/19 06:41 Pulse Rate 52 L 01/08/19 09:00 Respiratory Rate 18 01/08/19 06:41 Blood Pressure 121/68 01/08/19 09:00 O2 Sat by Pulse Oximetry (%) 97 01/08/19 06:41 Findings/Remarks: Patient requesting to leave AMA. No physical exam completed Labs: CBC, BMP 01/08/19 07:51 01/08/19 07:51 Problem List - Problems (1) Left against medical advice Assessment/Plan: Patient requesting to leave AMA. No physical exam completed Code(s): Z53.20 - PROC/TRTMT NOT CRD OUT BEC PT DECISION FOR UNSP REASONS Assessment/Plan Patient requesting to leave AMA. No physical exam completed Visit type - Emergency Visit Emergency Visit: Yes ED Registration Date: 01/08/19 Care time: The patient presented to the Emergency Department on the above date and was hospitalized for further evaluation of their emergent condition. - New Patient This patient is new to me today: Yes Date on this admission: 01/08/19 - Critical Care Critical Care patient: No
[2019-01-08] MEDS ORDERED: GABAPENTIN 300 MG CAPSULE (FP) PO SCH (13:15)
[2019-01-08] MEDS ORDERED: ATORVASTATIN CA 40 MG TABLET (FP) PO SCH (22:00)
[2019-01-08] MEDS ORDERED: DABIGATRAN ETEXILATE MESYLATE 150 MG CAPSULE PO SCH (22:00)
[2019-01-08] MEDS ORDERED: METOPROLOL TARTRATE 25 MG TABLET (FP) PO SCH (22:00)
[2019-01-09] MEDS ORDERED: DOCUSATE SODIUM 100 MG CAPSULE (FP) PO SCH (10:00)
[2019-01-09] MEDS ORDERED: PATIENT'S OWN MEDICATION (NON-FORMULARY) (Ferrous Sulfate [Iron] 325 MG) PO SCH (10:00)
[2019-01-09] MEDS ORDERED: PATIENT'S OWN MEDICATION (NON-FORMULARY) (L.Acidoph,Paracasei, B.Lactis [Probiotic] 1 EACH PO SCH (10:00)
[2019-01-09] MEDS ORDERED: HYDROCHLOROTHIAZIDE 12.5 MG CAPSULE (FP) PO SCH (10:00)
--- NOTE | 2019-01-14 11:45 | EKG ---
Test Reason : Blood Pressure : / mmHG Vent. Rate : 057 BPM Atrial Rate : 057 BPM P-R Int : 174 ms QRS Dur : 108 ms QT Int : 410 ms P-R-T Axes : 036 -04 015 degrees QTc Int : 399 ms SINUS BRADYCARDIA WITH SINUS ARRHYTHMIA NONSPECIFIC T WAVE ABNORMALITY ABNORMAL ECG WHEN COMPARED WITH ECG OF 01-DEC-2018 20:44, NONSPECIFIC T WAVE ABNORMALITY, WORSE IN LATERAL LEADS Confirmed by YAO DE LA PAZ, EARL ([id number]) on 01/14/2019 11:44:50 AM Referred By: Confirmed By:EARL SAMAYOA MD
== END 2019-01-08 11:00 | disposition left against medical advice (07) ==
LOC: JER 06:26 → JERBED 11:00
PROVIDERS: ADMIT Hospitalist; ATTEND Nurse Practitioner Acute Care
DX: R42 Dizziness and giddiness (principal); I10 Essential (primary) hypertension; E78.5 Hyperlipidemia, unspecified; E11.9 Type 2 diabetes mellitus without complications; G47.33 Obstructive sleep apnea (adult) (pediatric); Z85.46 Personal history of malignant neoplasm of prostate; Z79.84 Long term (current) use of oral hypoglycemic drugs; Z53.29 Procedure and treatment not carried out because of patient's decision for other reasons
CPT/HCPCS: 36415; 70450-TC; 71045-TC-FY; 80053; 82550; 82553; 82962; 83880; 84484; 85025; 93005; 93010; 99284-25; G0378

== ENCOUNTER 2020-11-14 12:28 | Observation (INO) | payer OTHER ==
[2020-11-14 12:52] VITALS: TEMP 98.2; BMI 39.9
[2020-11-14] MEDS ORDERED: FAMOTIDINE 20 MG/50 ML IVPB 20 MG/50 ML MG IVPB ONE ×2 (13:19→14:04)
[2020-11-14] MEDS ORDERED: methylPREDNISolone NA SUCC 125 MG/2 ML VIAL IVPUSH ONE (13:19)
[2020-11-14] MEDS ORDERED: SODIUM CHLORIDE 0.9% 500 ML INFUS.BAG IV ONE (13:24)
[2020-11-14] MEDS ORDERED: methylPREDNISolone NA SUCC 125 MG/2 ML VIAL ONE (14:03)
[2020-11-14 14:57] LABS: BASO % 0.2 % (0-2.0); EOS % 1.4 % (0-4.5); HEMATOCRIT 34.3 % (35.4-49); HEMOGLOBIN 11.1 GM/dL (11.7-16.9); LYMPH % 25.5 % (8-40); MCH 25.6 pg (25.7-33.7); MCHC 32.3 g/dl (32.0-35.9); MEAN CELL VOLUME 79.2 fl (80-96); MEAN PLT VOLUME 8.4 fl (7.5-11.1); MONO % 8.1 % (3.8-10.2); NEUT % 64.8 % (42.8-82.8); PLATELET COUNT 226 10^3/uL (134-434); RBC 4.34 M/mm3 (4.00-5.60); RDW 17.2 % (11.9-15.9); WHITE BLOOD COUNT 5.6 K/mm3 (4.0-10.0)
[2020-11-14 15:21] LABS: CHLORIDE 106 mmol/L (98-107); SODIUM 140 mmol/L (136-145)
[2020-11-14 15:23] LABS: CALCIUM 9.3 mg/dL (8.5-10.1)
[2020-11-14 15:24] LABS: ALBUMIN 3.7 g/dl (3.4-5.0); ANION GAP 7 MMOL/L (8-16); BLOOD UREA NITROGEN 31.2 mg/dL (7-18); CO2 27 mmol/L (21-32); GLUCOSE,RANDOM 165 mg/dL (74-106)
[2020-11-14 15:27] LABS: CREATININE 1.9 mg/dL (0.55-1.3); SGOT/AST 18 U/L (15-37); SGPT/ALT 31 U/L (13-61)
[2020-11-14 15:28] LABS: BILIRUBIN,TOTAL 0.2 mg/dL (0.2-1); TOT PROT 7.7 g/dl (6.4-8.2)
[2020-11-14 15:29] LABS: ALK PHOS 59 U/L (45-117)
[2020-11-14] MEDS ORDERED: ACETAMINOPHEN 1000 MG/100 ML VIAL (NON FORMULARY) IVPB ONE (15:34)
[2020-11-14] MEDS ORDERED: ACETAMINOPHEN INJECTION 100 ML IVPB ONE (15:48)
[2020-11-14 16:59] LABS: URINE APPEARANCE CLEAR; URINE BILIRUBIN NEGATIVE (NEGATIVE); URINE COLOR YELLOW; URINE GLUCOSE (UA) NEGATIVE (NEGATIVE); URINE KETONE NEGATIVE (NEGATIVE); URINE LEUK ESTERASE NEGATIVE (NEGATIVE); URINE NITRITE NEGATIVE (NEGATIVE); URINE PROTEIN NEGATIVE (NEGATIVE); URINE UROBILINOGEN 0.2 mg/dL (0.2-1.0)
[2020-11-14 17:34] VITALS: BP 119/71; PULSE 66
[2020-11-14] MEDS ORDERED: HEPARIN NA (PORCINE) 5,000 UNITS/ML 1ML VIAL SQ SCH (22:00)
== END 2020-11-14 19:08 | disposition left against medical advice (07) ==
LOC: JER 12:28 → JERBED 17:35 → INTOOBSV 17:35
PROVIDERS: ADMIT Internal Medicine; ATTEND Internal Medicine
PROC: 3E033NZ Introduction of Analgesics, Hypnotics, Sedatives into Peripheral Vein, Percutaneous Approach (ICD-10-PCS; principal; 2020-11-14)
PROC: 3E033GC Introduction of Other Therapeutic Substance into Peripheral Vein, Percutaneous Approach (ICD-10-PCS; 2020-11-14)
PROC: 3E0337Z Introduction of Electrolytic and Water Balance Substance into Peripheral Vein, Percutaneous Approach (ICD-10-PCS; 2020-11-14)
DX: T78.40XA Allergy, unspecified, initial encounter (principal); R07.9 Chest pain, unspecified; N17.9 Acute kidney failure, unspecified; E66.9 Obesity, unspecified; Z68.39 Body mass index [BMI] 39.0-39.9, adult; E11.9 Type 2 diabetes mellitus without complications; I10 Essential (primary) hypertension; Z85.46 Personal history of malignant neoplasm of prostate; E78.5 Hyperlipidemia, unspecified; R06.7 Sneezing; R21 Rash and other nonspecific skin eruption; Z91.010 Allergy to peanuts
CPT/HCPCS: 36415; 71045-TC-FY; 80053; 81003; 82550; 82553; 84484; 85025; 87086; 93005; 93010; 99285-25; G0378; J0131

== ENCOUNTER 2020-11-18 18:07 | Inpatient (IN) | payer OTHER ==
[2020-11-18] MEDS ORDERED: SODIUM CHLORIDE 0.9% 500 ML INFUS.BAG IV ONE (19:50)
[2020-11-18 20:33] LABS: BASO % 0.5 % (0-2.0); EOS % 3.3 % (0-4.5); HEMATOCRIT 32.3 % (35.4-49); HEMOGLOBIN 10.6 GM/dL (11.7-16.9); LYMPH % 35.4 % (8-40); MCHC 32.6 g/dl (32.0-35.9); MEAN CELL VOLUME 79.6 fl (80-96); MEAN PLT VOLUME 8.7 fl (7.5-11.1); MONO % 11.3 % (3.8-10.2); NEUT % 49.5 % (42.8-82.8); PLATELET COUNT 203 10^3/uL (134-434); RBC 4.06 M/mm3 (4.00-5.60); RDW 16.5 % (11.9-15.9)
[2020-11-18 20:48] LABS: ALBUMIN 3.4 g/dl (3.4-5.0); BLOOD UREA NITROGEN 32.5 mg/dL (7-18); CALCIUM 9.5 mg/dL (8.5-10.1)
[2020-11-18 20:49] LABS: URINE APPEARANCE CLEAR; URINE BILIRUBIN NEGATIVE (NEGATIVE); URINE COLOR YELLOW; URINE GLUCOSE (UA) 2+ (NEGATIVE); URINE KETONE NEGATIVE (NEGATIVE); URINE LEUK ESTERASE NEGATIVE (NEGATIVE); URINE NITRITE NEGATIVE (NEGATIVE); URINE PROTEIN NEGATIVE (NEGATIVE); URINE UROBILINOGEN 0.2 mg/dL (0.2-1.0)
[2020-11-18 20:51] LABS: CREATININE 1.9 mg/dL (0.55-1.3)
[2020-11-18 20:53] LABS: BILIRUBIN,TOTAL 0.6 mg/dL (0.2-1)
[2020-11-19] MEDS ORDERED: ACETAMINOPHEN 325 MG TABLET (FP) PO PRN (01:21)
[2020-11-19 01:25] VITALS: BMI 41.8
[2020-11-19] MEDS: INSULIN SLIDING SCALE (NOVOLOG) 1 VIAL SQ SCH ×4 (06:50→21:03)
[2020-11-19] MEDS: HEPARIN NA (PORCINE) 5,000 UNITS/ML 1ML VIAL SQ SCH ×3 (06:51→21:01)
[2020-11-19 07:51] LABS: HEMATOCRIT 32.1 % (35.4-49); HEMOGLOBIN 10.6 GM/dL (11.7-16.9); MCHC 32.9 g/dl (32.0-35.9); MEAN PLT VOLUME 8.4 fl (7.5-11.1); PLATELET COUNT 196 10^3/uL (134-434); RBC 4.07 M/mm3 (4.00-5.60); RDW 16.9 % (11.9-15.9); WHITE BLOOD COUNT 4.2 K/mm3 (4.0-10.0)
[2020-11-19 08:10] LABS: BLOOD UREA NITROGEN 27.6 mg/dL (7-18)
[2020-11-19 08:11] LABS: MAGNESIUM 1.9 mg/dL (1.8-2.4)
[2020-11-19 08:15] LABS: CREATININE 1.5 mg/dL (0.55-1.3); PHOSPHOROUS 3.7 mg/dL (2.5-4.9)
[2020-11-19] MEDS: POLYETHYLENE GLYCOL 3350 119 GM BTL PO SCH (09:35)
[2020-11-19] MEDS ORDERED: INSULIN (NOVOLOG) ASPART 100 UNITS/ML 10ML VIAL ONE (20:29)
[2020-11-20] MEDS: HEPARIN NA (PORCINE) 5,000 UNITS/ML 1ML VIAL SQ SCH ×2 (05:46→13:20)
[2020-11-20] MEDS: INSULIN SLIDING SCALE (NOVOLOG) 1 VIAL SQ SCH ×2 (06:04→11:35)
[2020-11-20 08:45] LABS: HEMATOCRIT 33.9 % (35.4-49); HEMOGLOBIN 11.1 GM/dL (11.7-16.9); MCH 25.7 pg (25.7-33.7); MCHC 32.8 g/dl (32.0-35.9); MEAN CELL VOLUME 78.5 fl (80-96); MEAN PLT VOLUME 8.1 fl (7.5-11.1); PLATELET COUNT 205 10^3/uL (134-434); RBC 4.32 M/mm3 (4.00-5.60); RDW 17.1 % (11.9-15.9); WHITE BLOOD COUNT 5.1 K/mm3 (4.0-10.0)
[2020-11-20 09:05] LABS: BLOOD UREA NITROGEN 23.6 mg/dL (7-18); CALCIUM 9.1 mg/dL (8.5-10.1)
[2020-11-20 09:09] LABS: CREATININE 1.4 mg/dL (0.55-1.3)
[2020-11-20] MEDS: POLYETHYLENE GLYCOL 3350 119 GM BTL PO SCH (11:07)
[2020-11-20] MEDS ORDERED: INSULIN (NOVOLOG) ASPART 100 UNITS/ML 10ML VIAL ONE (11:33)
[2020-11-20 15:11] VITALS: BP 121/79; PULSE 59; TEMP 98.2
== END 2020-11-20 17:57 | disposition home or self-care (01) | DRG 683 ==
LOC: JER 18:07 → JERBED 21:11 → J8W 11-19 01:00
PROVIDERS: ADMIT Internal Medicine; ATTEND Internal Medicine
DX: N17.9 Acute kidney failure, unspecified (principal); Z68.41 Body mass index [BMI] 40.0-44.9, adult; I12.9 Hypertensive chronic kidney disease with stage 1 through stage 4 chronic kidney disease, or unspecified chronic kidney disease; E66.01 Morbid (severe) obesity due to excess calories; I10 Essential (primary) hypertension; E78.5 Hyperlipidemia, unspecified; D50.9 Iron deficiency anemia, unspecified; E78.00 Pure hypercholesterolemia, unspecified; I48.91 Unspecified atrial fibrillation; G47.33 Obstructive sleep apnea (adult) (pediatric); R35.0 Frequency of micturition; E11.40 Type 2 diabetes mellitus with diabetic neuropathy, unspecified; K59.09 Other constipation; E11.22 Type 2 diabetes mellitus with diabetic chronic kidney disease; N18.9 Chronic kidney disease, unspecified; Z85.46 Personal history of malignant neoplasm of prostate
CPT/HCPCS: 36415; 76775-TC; 80048; 80053; 81003; 82436; 82570; 82728; 82962; 83036; 83540; 83550; 83735; 84100; 84133; 84300; 84443; 85025; 85027; 85045; 93005; 93010; 99285-25; C9803; J1644; U0003; U0005